=== PATIENT | female | born 2005 | race Two or more races ===

== ENCOUNTER 2025-10-30 12:59 | Emergency (ER) | payer OTHER ==
[~2025-10-30] VITALS: Ht 172.7 cm; Wt 62.6 kg
[2025-10-30] MEDS ORDERED: DIPHENHYDRAMINE HCL 50 MG/ML VIAL 1ML IM ONE (16:15)
[2025-10-30] MEDS ORDERED: METHYLPREDNISOLONE SOD SUCC 125 MG VIAL IM ONE (16:15)
[2025-10-30] MEDS ORDERED: MEDROLPACK PO (16:20)
[2025-10-30] MEDS ORDERED: ANTI-ITCH28 GM TOP (16:20)
[2025-10-30] MEDS ORDERED: METHYLPREDNISOLONE SOD SUCC 125 MG VIAL ONE (16:35)
[2025-10-30] MEDS ORDERED: DIPHENHYDRAMINE HCL 50 MG/ML VIAL 1ML ONE (16:35)
== END 2025-10-30 16:54 | disposition home or self-care (01) ==
LOC: ER 12:59
DX: L23.9 Allergic contact dermatitis, unspecified cause (principal)